=== PATIENT | female | born 1965 | race Caucasian/White ===

== ENCOUNTER 2022-08-22 09:12 | Outpatient (CLI) | payer OTHER, SELFPAY | END 2022-08-22 09:13 | disposition home or self-care (01) | LOC: INJ CL 09:12 | PROVIDERS: PCP Physician Assistant Medical; Visit Provider Family Medicine | DX: M54.16 Radiculopathy, lumbar region (principal); M51.36 Other intervertebral disc degeneration, lumbar region | CPT/HCPCS: 64483; J1100; Q9966 ==

== ENCOUNTER 2023-02-05 09:30 | Outpatient (RCR) | payer OTHER, SELFPAY ==
--- NOTE | 2023-01-28 13:06 | PT.OPDNX ---
PT [place] Outpatient Discharge Summary PT 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 I THINK I SLEPT WRONG. Pain Comments 010 Home Exercise Home Exercise Comments 12/19/22: ADDED S'HABD TB (RED) AND GUINEAN BALL OR WALL UPPER THORACIC EXT STRETCH Objective Other/Pertinent Objective SPINAL ALIGNMENT/POSTURE: FWD HEAD THORACIC KYPHOSIS DOWAGER'S HUMP CERVICAL ROM : Flexion: WNL Extension: WNL Right Rotation: WFL Left Rotation: WFL Right side bend: WFL Left Side bend: WFL SHOULDER AROM: WNL NECK/SHOULDER MMT: Deep neck flexor endurance test: WNL Shoulder shrug: R 5/5 L 5/5 Shoulder flexion: R 5/5 L 5/5 Shoulder abduction: R 5/5 L 5/ 5 Shoulder External Rotation: R 5/5 L 5/5 Shoulder Internal Rotation: R 5/5 L 5/5 Elbow Flexion: R 5/5 L 5/5 Elbow Ext: R 5/5 L 5/5 Thumb Ext: R 5/5 L 5/5 FInger Abd: R 5/5 L 5/5 SPECIAL TEST Spurlings Test: (-) Cervical distraction test: (- ) Neural Tension Test(Median/ Ulnar/Radial): (-) Bakody Sign(C4-C6 Radiculopathy): (-) Cervical rotation/Lateral flexion Test: (-) Marcin Test: (-) Vertebral Artery Test: (-) Sharp Marianna Test (transverse ligament): (-) Alar Lig Test: (-) Shoulder impingement Keys Tapan Test: (-) Neer Test: (-) Emmy Test: NT Horizontal Adduction Test: (-) JOINT MOBILITY/PALPATION : T8-T10 HYPOMOBILITY NOTED BILATERALLY TX: PRONE CERVICAL FLEX 3 X 10 SEC PRONE I, T, Y 10 X 5 SEC SEATED SHOULDER SHRUG WITH BKWD LOS COYOTES X 10 SEATED SCAP SQUEEZE 10 X 3 SEC SEATED CHIN TUCK 10 X 5 SEC SEATED THORACIC ROTATION STRETCH 3 X 10 SEC SEATED THORACIC EXT OVER CHAIR STRETCH 3 X 10 SEC . Patient Instructed in Risks/Benefits Yes Therapeutic Exercise Therapeutic Exercise Minutes (minutes) 35 Therapeutic Exercise: To Restore UBE (2.5 FWD/2.5 BKWD) Functional Status SEATED BKWD SHOULDER CIRCLES X 1MIN CHIN TUCKS X 1MIN HOLD 5 SEC SEATED THORACIC STRETCH 3 X 10 SEC STDG TB (BLUE) ROW X 15 STDG TB (BLUE) S'EXT X 15 STDG TB (GREEN) B'ER X 15 TRUNK EXT X 15 50# SUPINE ON LONG FOAM ROLL BUE FLEX/EXT X 10 SUPINE ON LONG FOAM ROLL SHORT VERSION BUE FLEX X 5 Manual Therapy Techniques Manual Therapy Minutes (minutes) 10 Manual Therapy Techniques PA MOBILIZATION T1-5 R/L FACET AND CENTRAL DTM TO MID THORACIC, LEVATOR SCAP Treatment Minutes Timed Code Treatment Minutes 45 Total Treatment Time 45 Billing Units Manual Therapy Units 1 Therapeutic Exercise Units 2 Plan of Care Physical Therapy Goals 1. PATIENT WILL TOLERATE AN ENTIRE SHIFT AT WORK WITH PAIN REPORTING OF <3/10 IN 8-10 WEEKS GOAL MET 2. PATIENT WILL BE INDEPENDENT WITH HER HEP AND DEMONSTRATE SELF PROGRESSION IN 8-10 WEEKS . GOAL MET 3. PATIENT WILL DEMONSTRATED NO PAIN DURING ADL'S, IADL'S, AND OTHER HOUSEHOLD ACTIVITIES IN 8-10 WEEKS. GOAL MET Daily Plan of Care Discharge Daily Plan of Care Comments DISCHARGE AND CONTINUE WITH HEP Discharge Note Discharge Summary PATIENT IS A [address] SANTOS AND DR. GOMEZ REFERRED TO PHYSICAL THERAPY D /T THORACIC PAIN DURING HER WORKDAY LIMITING HER BUE USE. PMHX INCLUDES BUT NOT LIMITED TO H/O LEFT KNEE SCOPE 2012, ANKLE SURGERY 2012, LEFT SHOULDER SCOPE 07/2010, CHOLECYSTECTOMY~2001, L TKA 2021, RIGHT TKA 07/2021, CERVICAL DDD, LUMBAR DDD, ARTHRITIS AND CELIAC DX. 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 SHE NOW CAN PARTICIPATE FULLY IN HER IADL' S, WORK ALL SHIFTS, AND PERFORM HER HEP CONSISTENTLY. SHE REPORTS RESOLUTION OF HER SYMPTOMS ABOUT HER CERVICOTHORACIC REGION WITH ONGOING ISSUES WITH HER FRACTURED PATELLA. IN REGARD TO THE DIAGNOSIS SHE WAS HERE TO SEE ME FOR SHE HAS MET HER GOAL AND IS DISCHARGED TODAY FROM [facility]. Date of First Visit for Therapy 12/05/22 Date of Last Visit for Therapy 01/28/23 Interventions Provided During Treatment Manual Therapy,Therapeutic Exercise Recommendations/Reason for Discharge Met All Therapy Goals Discharge Instructions CONTINUE WITH YOUR HEP Thank You For This Referral THANK YOU FOR YOUR REFERRAL
== END 2023-02-12 10:18 | disposition home or self-care (01) ==
PROVIDERS: PCP Physician Assistant Medical; Visit Provider Physician Assistant Medical
DX: M25.511 Pain in right shoulder (principal); Z51.89 Encounter for other specified aftercare
CPT/HCPCS: 97035; 97110; 97140; 97161; 97162; 97535; L3913; X5282

== ENCOUNTER 2023-07-16 09:00 | Outpatient (RCR) | payer OTHER, SELFPAY | END 2023-10-02 10:58 | disposition home or self-care (01) | PROVIDERS: PCP Physician Assistant Medical; Visit Provider Orthopaedic Surgery Sports Medicine | DX: S82.092A Other fracture of left patella, initial encounter for closed fracture (principal); Z96.652 Presence of left artificial knee joint; M25.562 Pain in left knee; R29.898 Other symptoms and signs involving the musculoskeletal system; Z51.89 Encounter for other specified aftercare | CPT/HCPCS: 97110; 97140; 97161 ==

== ENCOUNTER 2024-03-10 07:30 | Outpatient (RCR) | payer OTHER, SELFPAY | END 2024-07-08 23:59 | disposition home or self-care (01) | PROVIDERS: PCP Physician Assistant Medical; Visit Provider Physician Assistant Medical | DX: N81.89 Other female genital prolapse (principal); K59.00 Constipation, unspecified; R27.8 Other lack of coordination; Z51.89 Encounter for other specified aftercare | CPT/HCPCS: 97110; 97140; 97162; 97535 ==

== ENCOUNTER 2024-07-13 09:30 | Outpatient (RCR) | payer OTHER, SELFPAY | END 2024-10-19 15:01 | disposition home or self-care (01) | PROVIDERS: PCP Physician Assistant Medical; Visit Provider Family Medicine | DX: M75.41 Impingement syndrome of right shoulder (principal); M75.51 Bursitis of right shoulder; M19.011 Primary osteoarthritis, right shoulder; M25.511 Pain in right shoulder; Z74.09 Other reduced mobility; R53.1 Weakness; Z51.89 Encounter for other specified aftercare | CPT/HCPCS: 97110; 97161 ==

== ENCOUNTER 2025-03-27 23:24 | Emergency (ER) | payer BC, SELFPAY ==
--- OUTSIDE RECORDS SUMMARY | 2025-03-27 23:26 | XMS_ITS | Clinical Summary ---
Author Organization [facility] Address [address] [place] [address] Care Team Providers Care Forest Fire Officer Name Role Phone Shante Gandhi Primary Care Provider Allergies Active Allergy Reactions Criticality Noted Date Comments Gluten *Unknown 07/02/2021 Omeprazole Hives High 12/02/2010 Body itching- intense Hylan G-F 20 Edema Low 08/06/2020 Local reaction to SynVisc. Medications cetirizine (ZYRTEC) 10 mg tablet Daily Active tiZANidine (ZANAFLEX) 4 mg tabletIndications: Degeneration of lumbar or lumbosacral intervertebral disc TAKE 1 TABLET(4 MG) BY MOUTH EVERY 6 HOURS NEEDED FOR MUSCLE SPASM 60 Tablet 2 02/13/20 22 Active triamcinolone 0.5% (ARISTOCORT) 0.5 % creamIndications:D ermatitis Apply topically to affected area(s) three times daily. 30 g 1 12/01/19 24 Active HYDROcodone-acetam inophen (5-325 mg/tablet)Indicati ons:Chronic bursitis of right shoulder Take 1 Tablet by mouth every 4 hours if needed for Pain (Severe pain). Max acetaminophen dose: 4000 mg in 24 hrs. 24 Tablet 06/06/20 24 Active traZODone 50 mg tabletIndications: Degeneration of lumbar or lumbosacral intervertebral disc,Degeneration of cervical intervertebral disc TAKE 1 TO 2 TABLETS(50 TO 100 MG) BY MOUTH AT BEDTIME 180 Tablet 11/28/19 25 Active Active Problems Problem Noted Date Diagnosed Date Pap smear for cervical cancer screening 12/11/19 24 Overview (12/11/2023): 11/2023 NIL/HPV negative. Plan: Pap/HPV due 11/2028. S/P total knee arthroplasty, right 07/17/2021 Obesity, Class II, BMI 35-39.9 12/08/2017 Routine adult health maintenance 09/05/2016 Overview (09/05/2016): Colonoscopy 08/2016 normal repeat in 10 years Knee osteoarthritis 08/03/2014 Gastric ulcer, unspecified a s acute or chronic, without mention of hemorrhage, perforation, or obstruction 06/27/2011 Overview (06/27/2011): EGD 05/2011 small superficial ulcer, Helicobacter Pylori negative, no celiac disease, no follow up EGD needed Allergic rhinitis 06/06/2011 L3-4 disk protrusion and L4 nerve contact 2010 L4-5 central disk injury 02/03/2011 Prediabetes 10/17/2010 Large C6-7 Left Disk Herniation 05/31/2010 Left shoulder supraspinatus tendinosis 0 MIld Osteoarthritis of Right Hip 12/31/2009 Gluten-sensitive enteropathy 12/10/2009 Degeneration of cervical intervertebral disc Degeneration of lumbar or lumbosacral interverte bral disc 05/30/2009 Immunizations Immunization Administration Dates Next Due COVID-19 vaccine ([employer] NTech 30mcg/0.3mL) 12YO+ BIVALENT PF, MDV 06/17/2022 COVID-19 vaccine ([employer] NTech 30mcg/0.3mL) PF, MDV 06/07/2021,10/09/2020,09/18/2020 Influenza, IIV4 07/04/2016 Td (Age >=7 Years) 09/04/2003 Tdap 07/05/2020,07/16/2010 Zoster (Shingrix-RZV, recombinant) 02/15/2024, Family History Medical History Relation Name Comments Hypertension Father Diabetes Mother Cancer-breast No Family History Relation Name Status Comments Brother Alive Father Alive Mother Alive Social History Tobacco Use Types Packs/Day Years Used Date Smoking Tobacco: Never Smokeless Tobacco: Never Tobacco Cessation:Counseling Given: Yes Alcohol Use Standard Drinks/Week Comments No 0 (1 standard drink = 0.6 oz pur e alcohol) PHQ-2 Answer Date Recorded PHQ-2 TOTAL SCORE 0 12/01/2023 Social Connections Answer Date Recorded Do you often feel lonely or isolated from those around you? 0 10/23/2023 Financial Resource Strain Answer Date R ecorded Difficulty of Paying Living Expenses 3 10/23/2023 Difficulty of Paying Living Expenses Not on file 10/23/2023 Food Insecurity Answer Date Recorded Do you worry your food will run out before you are able to buy more? 1 10/23/2023 Transportation Needs Answer Date Record ed Does lack of transportation keep you from medica l appointments? 1 10/23/2023 Does lack of transportation keep you from work, meetings or getting things that you need? 1 10/23/2023 Housing Stability Answer Date Recorded What is your housing situation today? 1 10/23/2023 Utilities Answer Date Recorded Do you have trouble paying f or utilities (for example, heat, electricity, water, phone)? 1 10/23/2023 Comments No Sex and Gender Information Value Date Recorded Sex Assigned at Female 02/19/2020 12:03 AM CDT Legal Sex Female 7:01 AM GEOMATICS PROFESSOR Gender Identity Female 02/19/2020 12:03 AM CDT Sexual Orientation Straight 02/19/2020 12 :03 AM CDT Obstetrics History Last Filed Vital Signs Vital Sign Reading Time Taken Comments Blood Pressure 98/56 09/01/2024 11:03 AM GEOMATICS PROFESSOR Pulse 82 09/01/2024 11:03 AM GEOMATICS PROFESSOR Temperature 36.4 C (97.6 F) 09/01/2024 11:03 AM GEOMATICS PROFESSOR Respiratory Rate 19 09/01/2024 11:03 AM GEOMATICS PROFESSOR Oxygen Saturation 98% 09/01/2024 11:03 AM GEOMATICS PROFESSOR Inhaled Oxygen Concentration - - Weight 88.5 kg (195 lb) 06/08/2024 11:00 AM CDT Height 179 cm (5' 10.47) 12/01/2023 9:24 AM CDT Body Mass Index 27.61 12/01/2023 9:24 AM CDT Plan of Treatment Health Maintenance Due Date Last Done Comments HIV for age 15-65 1980 Hepatitis B series for 19+ ( 1 of 3 - 19+ 3-dose series) 1984 Pneumococcal series for age 50+ (1 of 1 - PCV) 2015 Mammogram for age 45-75 10/21/2024 10/21/19 24, 11/03/2018, 08/01/2016, Additional history exists BMI (ht and wt on same day) for age 18+ 11/30/2024 12/01/2023, 10/23/2023, 03/04/2023, Additional history exists Depression screening for age 12+ 11/30/2024 12/01/2023, 02/04/2022, 12/19/2020, Additional history exists Influenza Vaccine (#1) 2025 07/04/2016 Colonoscopy through age 75 09/05/202609/05, 09/05/2016, 09/05/2016 Lipids for age 45-75 10/23/2028 10/23/2023, 11/03/2018, 09/05/2016, Additional history exists Pap test for age 21-65 11/30/2028 , 12/01/2023, 11/03/2018, Additional history exists Tetanus booster 07/05/2030 07/05/2020, 07/01, 09/04/2003 Hepatitis C screening for ag e 18-79 Completed 2014 Zoster (shingles) series for age 50+ Completed 02/15/2024, 10/23/2023 COVID-19 vaccine series Completed 06/01/20 24, 06/04/2023, 06/17/2022, Additional history exists Procedures Procedure Name Priority Date/Time Associated Diagnosis Comments RESERVOIR ENGINEERING CONSULTANT THIN PREP PAP SCREEN IMAGED Routine 12/01/2023 10:11 AM CDT Screening for cervical cancer LIPID PANEL W REFLEX MEASURED LDL Routine 10/23/2023 8:41 AM GEOMATICS PROFESSOR Screening cholesterol level XR MAMMO PRECIOUS BILAT SCREEN Routine 10/21/2023 9:03 AM GEOMATICS PROFESSOR Encounter for screening mammogram for malignant neoplasm of breast COLONOSCOPY 09/05/2016 9:28 AM GEOMATICS PROFESSOR ANTI HCV Routine 2014 8:58 AM CDT Need for hepatitis C screening test from Last 3 Months or Most Recently Relevant to Health Maintenance Results * RESERVOIR ENGINEERING CONSULTANT THIN PREP PAP SCREEN IMAGED [[id number]] (12/01/2023 10:11 AM CDT) Case Report Gynecologic Cytology Report Case: [id number] Authorizing Provider: Shante Gandhi PA Collected: 12/01/2023 1011 Ordering Location: [facility] Received: 12/01/2023 1030 Clinic First Screen: Obey Simmons Specimen: RESERVOIR ENGINEERING CONSULTANT ThinPrep Vial Screening, Cervical 12/10/2023 11:51 AM CDT [facility] INTERPRETATION/ RESULT NEGATIVE FOR INTRAEPITHELIAL LESION OR MALIGNANCY (NIL) (none) 12/10/2023 11:51 AM CDT [facility] at 1151 CDT SPECIMEN ADEQUACY Satisfactory for evaluation Endocervical component present 12/10/2023 11:51 AM CDT [facility] HPV REQUEST HPV and PAP 12/10/2023 11:51 AM CDT [facility] Date of LMP unsure 12/10/2023 11:51 AM CDT [facility] Last Pap Date 11/03/18 12/10/2023 11:51 AM CDT [facility] Last Pap Result NIL 11:51 AM CDT [facility] Abnormal Pap or [place] Bx in last 5 years No 12/10/2023 11:51 AM CDT [facility] Menstrual Status Postmenopausal 12/10/2023 11:51 AM CDT [facility] [place] Bx Done Today No 12/10/2023 11:51 AM CDT [facility] Additional Information None given 12/10/2023 11:51 AM CDT [facility] Comment: Cytology is screened at [facility] - [address], [place] [address] [address] [facility] - [address] [place] [address], [place] [address] and [facility] - [address] [place] [address] Interpreted at [facility] - [address] [place] [address] Automated Review Successful 12/10/2023 11:51 AM CDT [facility] Comment:Specimen processed s uccessfully by automated public health policy analyst device, ThinPrep Imaging System, [employer] ANCILLARY TESTING RESERVOIR ENGINEERING CONSULTANT HPV Ordered, Please see separate report 12/10/2023 11:51 AM CDT [facility] Note The pap test is a screening technique, not a diagnostic procedure. It is used primarily to screen for squamous cancers and precursor lesions. Published studies have shown that it is subject to both false negative and false positive results. The pap test should not be used as the sole means to diagnose or exclude pre-malignant and malignant lesions. 12/10/2023 11:51 AM CDT [facility] Other (Cervical) Non-Blood / Unknown 12/01/2023 10:11 AM CDT 12/01/2023 10:30 AM CDT Shante MORALES PATHOLOGY/CYTOLOGY Ernestina pat Result [facility] [address] [place] [address], * LIPID PANEL W REFLEX MEASURED LDL (10/23/2023 8:41 AM GEOMATICS PROFESSOR) CHOLESTEROL,TOTAL 180 100 - 199 mg/dL 10/23/2023 5:11 PM GEOMATICS PROFESSOR [facility] Comment: Cholesterol, Total Reference Ranges Desirable <200 mg/dL Borderline 200-239 mg/dL High >=240 mg/dL TRIGLYCERIDES 104 <150 mg/dL 10/23/2023 5:11 PM GEOMATICS PROFESSOR [facility] HDL CHOLESTEROL 47 >40 mg/dL 5:11 PM GEOMATICS PROFESSOR [facility] NON-HDL CHOLESTEROL 133 <145 mg/dl 10/23/2023 5:11 PM GEOMATICS PROFESSOR [facility] CHOL/HDL RATIO 3.83 <4.50 10/23/2023 5:11 PM GEOMATICS PROFESSOR [facility] LDL CHOLESTEROL 112 <=130 mg/dL 10/23/2023 5:11 PM GEOMATICS PROFESSOR [facility] VLDL CHOLESTEROL 21 <=30 mg/dL 10/23/2023 5:11 PM GEOMATICS PROFESSOR [facility] PROVIDER ORDERED STATUS RANDOM 10/23/2023 5:11 PM GEOMATICS PROFESSOR [facility] Blood BLOOD SPECIMEN / Unknown Venipuncture / Unknown 10/23/2023 8:41 AM GEOMATICS PROFESSOR 10/23/2023 8:41 AM GEOMATICS PROFESSOR us Shante MORALES CHEMISTRY Final R esult [facility] [address] [place] [address], [place] * XR MAMMO PRECIOUS BILAT SCREEN (10/21/2023 9:03 AM GEOMATICS PROFESSOR) Anatomical Region Laterality Modality BREASTS, Breast Left, Breast Right Bilateral Mammography Impressions 10/21/2023 2:58 PM GEOMATICS PROFESSOR There is no radiographic evidence for malignancy. Recommend annual mammograms. MAMMOGRAM ASSESSMENT: ACR 1 Negative PATIENTS: You will also receive a letter with your examination results in an easy to read format. If you have questions about your results, please contact your referring provider. Narrative 10/21/2023 2:58 PM GEOMATICS PROFESSOR For Patients: As a result of the 21st Century Cures Act, medical imaging exams and procedure reports are released immediately into your electronic medical record. You may view this report before your referring provider. If you have questions, please contact your health care provider. XR MAMMO PRECIOUS BILAT SCREEN [[id number]] CLINICAL HISTORY: This is an asymptomatic 58 y.o. patient. INDICATION FOR EXAM: Mammogram Screening. TECHNIQUE: CC & MLO views were obtained. This study was evaluated with the assistance of Computer-Aided Detection. Breast Tomosynthesis was used in interpretation. COMPARISON FILM: Yes 3/6/19 [facility] 08/01/16 [facility] FINDINGS: The breasts have scattered areas of fibroglandular density. There are no dominant masses, suspicious micro calcifications or areas of architectural distortion. us Shante MROALES MAMMO Final R esult * COLONOSCOPY (09/05/2016 9:28 AM GEOMATICS PROFESSOR) 09/05/2016 9:28 AM GEOMATICS PROFESSOR Narrative Transcriptions Juancho Ferrer MD - 10/20/2016 3:34 PM CST Patient Name: Ayanna Jackson Procedure Date: 09/05/2016 Gender: Female Date of : 1965 Admit Type: Outpatient Procedure: Colonoscopy Proceduralist: Juancho Ferrer MD Referring MD: Shante Gandhi Indications/Pre-Op Diagnosis: Screening for colorectal malignant neoplasm, This is the patient's first colonoscopy Medications: Fentanyl 100 micrograms IV, Midazolam 3 mgIV, The level of sedation administered wasmoderate Procedure Description: The patient had risks, benefits and alternatives explained to andgave informed consent. The patient had a stable cardiopulmonary status and judged an adequate candidate for conscious sedation. The [id number] was passed through the anus and advanced tothe cecum, identified by appendiceal orifice and ileocecal valve. The colonoscopy was performed without difficulty. The patient toleratedthe procedure well. The quality of the bowel preparation was excellent.The ileocecal valve, appendiceal orifice, and rectum were photographed. Moderate (conscious) sedation was administered by the endoscopist.The following parameters were monitored: oxygen saturation, heart rate, blood pressure, and response to care. Total physician intra-servicetime was 25 minutes. Please see endoscopy/nursing flowsheet and notes for moderate sedation information and documentation. Complications: No immediate complications. Estimated Blood Loss & Specimen: Estimated blood loss: none. Specimen collected - None Findings: The perianal and digital rectal examinations were normal. The entire examined colon appeared normal on direct and retroflexion views. Impressions/Post-Op Diagnosis: - The entire examined colon is normal on direct and retroflexionviews. - No specimens collected. Recommendation: - Patient has a contact number available for emergencies. The signsand symptoms of potential delayed complications were discussed with the patient. Return to normal activities tomorrow. Written discharge instructions were provided to the patient. - Resume previous diet. - Continue present medications. - Repeat colonoscopy in 10 years for screening purposes. Juancho Ferrer MD 09/05/2016 10:49:01 AM This report has been signed electronically. Note Initiated On: 09/05/2016 9:28 AM Procedure Code(s): --- Professional --- G0121, Colorectal cancer screening;colonoscopy on individual not meeting criteria for highrisk Diagnosis Code(s): --- Professional --- Z12.11, Encounter for screening formalignant neoplasm of colon CPT copyright 2015 [employer]. All rights reserved. The codes documented in this report are preliminary and upon learning and development administrator reviewmay be revised to meet current compliance requirements. Scope In: 10:25:47 AM Scope Withdrawal Time 0 hours 8 minutes 34 seconds Scope Out: 10:45:22 AM us Juancho Ferrer MD PROCEDURE ORD Edited Re sult - Final * ANTI HCV [[id number]] (2014 8:58 AM CDT) HEPATITIS C ANTIBODY Non-Reacti ve Non-Reacti ve 2014 1:55 PM CDT [facility] Blood specimen (specimen) BLOOD SPECIMEN / Unknown Venipuncture / Unknown 2014 8:58 AM CDT 2014 8:58 AM CDT Narrative [facility] - 2014 1:55 PM CDT Antibodies to HCV not detected; does not exclude the possibility of exposure to HCV. us Shante MORALES SEND OUTS Final R esult [facility] [address] [place] [address], [place] from Last 3 Months or Most Recently Relevant to Health Maintenance Insurance [facility] [place]-[facility] Care Teams Forest Fire Officer Relationship Specialty Start Date End Date Shante Gandhi PA [address] [place] [address] PCP - General Family Practice 11/12/15
[2025-03-27 23:30] VITALS: BP 157/92; PULSE 89; RESP 18; TEMP 36.8; O2SAT 99; BMI 28.7
--- NOTE | 2025-03-27 23:37 | ED_ITS ---
HPI - General Adult General Date Seen: 03/27/25 Chief complaint: Insect Bite Stated complaint: multiple hornet stings Time Seen by Provider: 03/27/25 23:35 History of Present Illness HPI narrative: 59 yo F presenting to the ER today with her for evaluation of multiple the or hornet stings. About 45 minutes prior to arrival this evening she was going into a garage when she unexpectedly and encountered a Swarm for notes. She initially about the flies, but they were not. This started landing on her and sting. She suffered multiple stings, perhaps around 10. Two of them on her right hand on the dorsum of the knuckles and tumor on her left forearm. She has a few stings on her low back, sting on her left thigh. All of the stings are itchy and burning and some them are developing into red welts. She feels little bit dizzy. She is not having any swelling in her throat. No other diffuse hives. No trouble breathing. No abdominal pain. No vomiting. She has not had a bee sting in quite a few years but has no history of bee sting allergy. Related Data Home Medications ?Medication ?Instructions ?Recorded ?Confirmed cetirizine 10 mg tablet (Zyrtec) 10 mg PO QDAY PRN 12/2005/05/23 Previous Rx's ?Medication ?Instructions ?Recorded diphenhydramine HCl 25 mg capsule 25 mg PO TID PRN #10 caps 03/28/25 (Benadryl) diphenhydramine HCl 25 mg capsule 25 mg PO TID PRN #10 caps 03/28/25 (Benadryl) ibuprofen 600 mg tablet 600 mg PO Q8H PRN #14 tabs 0 03/28/25 prednisone 20 mg tablet 40 mg (2 x 20 mg) PO DAILY # 6 tabs 03/28/25 prednisone 20 mg tablet 40 mg (2 x 20 mg) PO DAILY 3 days 03/28/25 #6 tabs Allergies Allergy/AdvReac Type Severity Reaction Status Date / Time gluten Allergy Verified 05/05/23 09:56 hylan G-F 20 Allergy Verified 05/05/23 09:56 omeprazole Allergy Hives Verified 05/05/23 09:56 [facility] Medical History (Updated 03/28/25 @ 00:03 by Mp Emmanuel MD) Anemia ?D64.9 - Anemia, unspecified (ICD-10) Surgical History History of ankle surgery (06/14/13) ?Z98.890 - Other specified postprocedural states (ICD-10) H/O arthroscopy of left knee (07/18/13) ?Z98.890 - Other specified postprocedural states (ICD-10) History of arthroscopy of left shoulder (07/23/10) ?Z98.890 - Other specified postprocedural states (ICD-10) 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) ?Z96.652 - Presence of left artificial knee joint (ICD-10) History of total right knee replacement (07/15/21) ?Z96.651 - Presence of right artificial knee joint (ICD-10) History of cholecystectomy (~2001) ?Z90.49 - Acquired absence of other specified parts of digestive tract (ICD- 10) Family History Maternal Grandfather Aneurysm Mother Diabetes Alcohol dependence Paternal Grandfather Myocardial infarction Stroke Father High blood pressure Social History (Updated 12/30/22 @ 10:01 by Joi Vanessa ~ [facility]) Smoking Status: Never smoker Do you use any of these nicotine containing products: None Second hand tobacco smoke exposure: No How often do you have a drink containing alcohol: never AUDIT-C Alcohol total score: 0 Non-prescribed substance use: denies use Exam Narrative: Exam Narrative: Constitutional: Appears well-developed and well-nourished. Alert. Conversant. Non toxic. HENT: Head: Atraumatic. Nose: Nose normal. Mouth/Throat: Oral mucosa is clear and moist. no trismus. Pharynx normal. Tonsils symmetric. No tonsillar enlargement, erythema, or exudate. Eyes: Conjunctivae normal. EOM normal. Pupils equal, round, and reactive to light. No scleral icterus. Neck: Normal range of motion. Neck supple. No tracheal deviation present. Cardiovascular: Normal rate, regular rhythm. No gallop. No friction rub. No murmur heard. Pulmonary/Chest: Effort normal. No stridor. No respiratory distress. No wheezes. No rales. No rhonchi . Abdominal: Soft. No distension. No mass. No tenderness. No rebound. No guarding. Musculoskeletal: RUE: Normal range of motion. No tenderness. No deformity LUE: Normal range of motion. No tenderness. No deformity RLE: Normal range of motion. No edema. No tenderness. No deformity LLE: Normal range of motion. No edema. No tenderness. No deformity Neurological: Alert and oriented to person, place, and time. Normal strength. CN II-VII intact. No sensory deficit. GCS eye subscore is 4. GCS verbal subscore is 5. GCS motor subscore is 6. Normal coordination Skin: Skin is warm and dry. No rash noted. No pallor. Normal capillary refill. Psychiatric: Normal mood. Normal affect. Const: Vital Signs, click to edit/add: Vital Signs - 24 hr 03/27/25 23:30 03/27/25 23:56 03/28/25 00:15 Temperature 98.2 F 98.2 F 98.2 F Pulse Rate [Right Pulse Oximeter] 89 81 Respiratory Rate 18 18 Blood Pressure [Ri ght Upper Arm] 157/92 H 145/84 H Pulse Oximetry 99 99 Oxygen Delivery Me thod Room Air Room Air 03/28/25 00:17 Temperature 98.2 F Pulse Rate [Right Pulse Oximeter] 81 Respiratory Rate 18 Blood Pressure [Ri ght Upper Arm] 145/84 H Pulse Oximetry Oxygen Delivery Me thod Course Vital Signs Vital signs: Initial Vital Signs Temperature 98.2 F 03/27/25 23:30 Temperature Source Temporal Artery Scan 03/27/25 23:30 Pulse Rate 89 03/27/25 23:30 Respiratory Rate 18 03/27/25 23:30 Blood Pressure 157/92 H 03/27/25 23:30 Blood Pressure Mean 113 H 03/27/25 23:30 Blood Pressure Position Sitting 03/27/25 23:30 Pulse Oximetry 99 03/27/25 23:30 Oxygen Delivery Method Room Air 03/27/25 23:30 Vital Signs Temperature 98.2 F 03/27/25 23:30 Pulse Rate 89 03/27/25 23:30 Respiratory Rate 18 03/27/25 23:30 Blood Pressure 157/92 H 03/27/25 23:30 Pulse Oximetry 99 03/27/25 23:30 Oxygen Delivery Method Room Air 03/27/25 23:30 Temperature 98.2 F 03/28/25 00:17 Pulse Rate 81 03/28/25 00:17 Respiratory Rate 18 03/28/25 00:17 Blood Pressure 145/84 H 03/28/25 00:17 Pulse Oximetry 99 03/28/25 00:15 Oxygen Delivery Method Room Air 03/28/25 00:15 Medications Administered Medications: Discontinued Medications Generic Name Dose Route Start Last Admin Trade Name Breana PRN Reason Stop Dose Admin Diphenhydramine HCl 25 mg 03/27/25 23:50 03/27/25 23:55 Diphenhydramine 25 Mg Capsule PO 03/27/25 23:51 25 mg ONCE ONE Administration Ibuprofen 600 mg 03/27/25 23:50 03/27/25 23:56 Ibuprofen 600 Mg Tablet PO 03/27/25 23:51 600 mg ONCE ONE Administration Prednisone 40 mg 03/27/25 23:50 03/27/25 23:56 Prednisone 20 Mg Tablet PO 03/27/25 23:51 40 mg ONCE ONE Administration Medical Decision Making [facility] Narrative Medical decision making narrative: This patient presents for evaluation after she had multiple insect stings from hornets or BBs that were or unexpectedly in her garage this evening.. She does have multiple erythematous painful itchy macules on her skin that correspond to about 10 bite sites. No airway involvement, bronchospasm, GI symptoms, hypotension, or other sign of anaphylaxis. Patient was treated here with medications as noted above. At this point I think she is safe to discharge home with steroids, antihistamines. NSAIDs for pain. Potential for worsening allergic reaction was discussed. Anaphylactic symptoms were discussed with patient and they were instructed to inject epi-pen and call 911 should these symptoms occur. Given the rapidity of resolution, lack of serious systemic symptoms, lack of respiratory difficulty and no oral or pharyngeal swelling, would not admit at this time for anaphylaxis. There is no signs of anaphylactic shock. Discharge Plan Discharge Clinical Impression: Hymenoptera sting Patient Disposition: Home, Self-Care Condition: Stable Instructions: Insect Bite or Sting (ED) Additional Instructions: As we discussed, it will usually take a couple of days for the pain and burning from your bee stings to settle down. To help treat your symptoms you can use ibuprofen 600 mg 3 times daily as needed, and Benadryl 25 mg every 6 hours as needed. Be careful because Benadryl can cause drowsiness. You can use prednisone once daily for the next couple of days to keep your immune system her control. If you have worsening symptoms such as swelling in her throat, trouble heather thing, dizziness or lightheadedness, or any other problems, please return to the ER right away. Prescriptions: New prednisone 20 mg tablet 40 mg PO DAILY 3 Days Qty: 6 0RF diphenhydramine HCl [Benadryl] 25 mg capsule 25 mg PO TID PRNQty: 10 0RF diphenhydramine HCl [Benadryl] 25 mg capsule 25 mg PO TID PRNQty: 10 0RF prednisone 20 mg tablet 40 mg PO DAILY Qty: 6 0RF ibuprofen 600 mg tablet 600 mg PO Q8H PRNQty: 14 0RF No Action cetirizine [Zyrtec] 10 mg tablet 10 mg PO QDAY PRN Follow Up/Referrals: Shante Gandhi PA-C [Primary Care Provider, Family Practice] Stand Alone Forms: Kiosked Info Instructions
[2025-03-27 23:56] VITALS: TEMP 36.8
[2025-03-27] MEDS: IBUPROFEN 600 MG TABLET PO (23:56)
--- OUTSIDE RECORDS SUMMARY | 2025-03-28 00:09 | XMS_ITS | Clinical Summary ---
Author Organization [facility] Address [address] [place] [id number] Care Team Providers Care Mint Wafer Depositor Name Role Phone Shante Gandhi Primary Care [...] Immunization Administration Dates Next Due COVID-19 vaccine ([employer] 30mcg/0.3mL) 12YO+ BIVALENT PF, MDV 06/17/2022 COVID-19 vaccine ([employer] 30mcg/0.3mL) PF, MDV 06/07/2021,10/09/2020,09/18/2020 Influenza, IIV4 [...] AM CDT Legal Sex Female 7:01 AM ETHYLBENZENE CRACKING SUPERVISOR Gender Identity Female 02/19/2020 12:03 AM CDT Sexual Orientation Straight 02/19/2020 12 :03 AM CDT Obstetrics History Last Filed Vital Signs Vital Sign Reading Time Taken Comments Blood Pressure 98/56 09/01/2024 11:03 AM ETHYLBENZENE CRACKING SUPERVISOR Pulse 82 09/01/2024 11:03 AM ETHYLBENZENE CRACKING SUPERVISOR Temperature 36.4 C (97.6 F) 09/01/2024 11:03 AM ETHYLBENZENE CRACKING SUPERVISOR Respiratory Rate 19 09/01/2024 11:03 AM ETHYLBENZENE CRACKING SUPERVISOR Oxygen Saturation 98% 09/01/2024 11:03 AM ETHYLBENZENE CRACKING SUPERVISOR Inhaled Oxygen Concentration - - Weight 88.5 [...] Procedure Name Priority Date/Time Associated Diagnosis Comments DOUBLE ENDING MACHINE OPERATOR THIN PREP PAP SCREEN IMAGED Routine 12/01/2023 10:11 AM CDT Screening for cervical cancer LIPID PANEL W REFLEX MEASURED LDL Routine 10/23/2023 8:41 AM ETHYLBENZENE CRACKING SUPERVISOR Screening cholesterol level XR MAMMO PRECIOUS BILAT SCREEN Routine 10/21/2023 9:03 AM ETHYLBENZENE CRACKING SUPERVISOR Encounter for screening mammogram for malignant neoplasm of breast COLONOSCOPY 09/05/2016 9:28 AM ETHYLBENZENE CRACKING SUPERVISOR ANTI HCV Routine 2014 8:58 AM CDT Need for hepatitis C screening test from Last 3 Months or Most Recently Relevant to Health Maintenance Results * DOUBLE ENDING MACHINE OPERATOR THIN PREP PAP SCREEN IMAGED [[id number]] (12/01/2023 10:11 AM CDT) Case Report Gynecologic Cytology Report Case: [id number] Authorizing Provider: Shante Gandhi PA Collected: 12/01/2023 1011 Ordering Location: [facility] Received: 12/01/2023 1030 Clinic First Screen: Obey Simmons Specimen: DOUBLE ENDING MACHINE OPERATOR ThinPrep Vial Screening, Cervical 12/10/2023 11:51 AM CDT [facility] INTERPRETATION/ RESULT NEGATIVE FOR INTRAEPITHELIAL LESION OR MALIGNANCY (NIL) (none) 12/10/2023 11:51 AM CDT [facility] at 1151 CDT SPECIMEN ADEQUACY Satisfactory for evaluation Endocervical component present 12/10/2023 11:51 AM CDT [facility] HPV REQUEST HPV and PAP 12/10/2023 11:51 AM CDT [facility] Date of LMP unsure 12/10/2023 11:51 AM CDT [facility] Last Pap Date 11/03/18 12/10/2023 11:51 AM CDT [facility] Last Pap Result NIL 11:51 AM CDT [facility] Abnormal Pap or Burdette Bx in last 5 years No 12/10/2023 11:51 AM CDT [facility] Menstrual Status Postmenopausal 12/10/2023 11:51 AM CDT [facility] Burdette Bx Done Today No 12/10/2023 11:51 AM CDT [facility] Additional Information None given 12/10/2023 11:51 AM CDT [facility] Comment: Cytology is screened at [facility], Central Laboratory - [address], [place] [address] and [facility] - [address] [place] [address], [place] [address] and [facility] - [address] [place] [address] Interpreted at [facility] - [address] [place] [address] Automated Review Successful 12/10/2023 11:51 AM CDT [facility] Comment:Specimen processed s uccessfully by automated astronomy teacher device, ThinPrep Imaging System, [employer] ANCILLARY TESTING DOUBLE ENDING MACHINE OPERATOR HPV Ordered, Please see separate report 12/10/2023 11:51 AM CDT [facility] Note The pap test [...] and malignant lesions. 12/10/2023 11:51 AM CDT [facility] Other (Cervical) Non-Blood / Unknown 12/01/2023 10:11 AM CDT 12/01/2023 10:30 AM CDT Shante MORALES PATHOLOGY/CYTOLOGY Ernestina pat Result [facility] [address] [place] [address], * LIPID PANEL W REFLEX MEASURED LDL (10/23/2023 8:41 AM ETHYLBENZENE CRACKING SUPERVISOR) CHOLESTEROL,TOTAL 180 100 - 199 mg/dL 10/23/2023 5:11 PM ETHYLBENZENE CRACKING SUPERVISOR [facility] Comment: Cholesterol, Total Reference Ranges Desirable <200 mg/dL Borderline 200-239 mg/dL High >=240 mg/dL TRIGLYCERIDES 104 <150 mg/dL 10/23/2023 5:11 PM ETHYLBENZENE CRACKING SUPERVISOR [facility] HDL CHOLESTEROL 47 >40 mg/dL 5:11 PM ETHYLBENZENE CRACKING SUPERVISOR [facility] NON-HDL CHOLESTEROL 133 <145 mg/dl 10/23/2023 5:11 PM ETHYLBENZENE CRACKING SUPERVISOR [facility] CHOL/HDL RATIO 3.83 <4.50 10/23/2023 5:11 PM ETHYLBENZENE CRACKING SUPERVISOR [facility] LDL CHOLESTEROL 112 <=130 mg/dL 10/23/2023 5:11 PM ETHYLBENZENE CRACKING SUPERVISOR [facility] VLDL CHOLESTEROL 21 <=30 mg/dL 10/23/2023 5:11 PM ETHYLBENZENE CRACKING SUPERVISOR [facility] PROVIDER ORDERED STATUS RANDOM 10/23/2023 5:11 PM ETHYLBENZENE CRACKING SUPERVISOR [facility] Blood BLOOD SPECIMEN / Unknown Venipuncture / Unknown 10/23/2023 8:41 AM ETHYLBENZENE CRACKING SUPERVISOR 10/23/2023 8:41 AM ETHYLBENZENE CRACKING SUPERVISOR us Shante MORALES CHEMISTRY Final R esult [facility] [address] [place] [id number], [place] * XR MAMMO PRECIOUS BILAT SCREEN (10/21/2023 9:03 AM ETHYLBENZENE CRACKING SUPERVISOR) Anatomical Region Laterality Modality BREASTS, Breast Left, Breast Right Bilateral Mammography Impressions 10/21/2023 2:58 PM ETHYLBENZENE CRACKING SUPERVISOR There is no radiographic evidence for malignancy. Recommend annual mammograms. MAMMOGRAM ASSESSMENT: ACR 1 Negative PATIENTS: You will also receive a letter with your examination results in an easy to read format. If you have questions about your results, please contact your referring provider. Narrative 10/21/2023 2:58 PM ETHYLBENZENE CRACKING SUPERVISOR For Patients: As a result of the 21st Century Cures Act, medical imaging exams and procedure reports are released immediately into your electronic medical record. You may view this report before your referring provider. If you have questions, please contact your health care provider. XR MAMMO PRECIOUS BILAT SCREEN [[id number]] CLINICAL HISTORY: This is an asymptomatic 58 [...] or areas of architectural distortion. us Shante MORALES MAMMO Final R esult * COLONOSCOPY (09/05/2016 9:28 AM ETHYLBENZENE CRACKING SUPERVISOR) 09/05/2016 9:28 AM ETHYLBENZENE CRACKING SUPERVISOR Narrative Transcriptions Juancho Ferrer MD - 10/20/2016 [...] adequate candidate for conscious sedation. The PCF-[id number] [id number] was passed through the anus and advanced [...] formalignant neoplasm of colon CPT copyright 2015 [employer]. All rights reserved. The codes documented in this report are preliminary and upon plate printer reviewmay be revised to meet current compliance requirements. Scope In: 10:25:47 AM Scope Withdrawal Time 0 hours 8 minutes 34 seconds Scope Out: 10:45:22 AM us Juancho Ferrer MD PROCEDURE ORD Edited Re sult - Final * ANTI HCV [[id number]] (2014 8:58 AM CDT) HEPATITIS C ANTIBODY Non-Reacti ve Non-Reacti ve 2014 1:[address] [facility] Blood specimen (specimen) BLOOD SPECIMEN / Unknown Venipuncture / Unknown 2014 8:58 AM CDT 2014 8:58 AM CDT Narrative [facility] - 2014 1:55 PM CDT Antibodies to HCV not detected; does not exclude the possibility of exposure to HCV. us Shante MORALES SEND OUTS Final R esult [facility] [address] [place] [address], [place] from Last 3 Months or Most Recently Relevant to Health Maintenance Insurance [facility] NON-VA-[facility] Care Teams Mint Wafer Depositor Relationship Specialty Start Date End Date Shante Gandhi PA [address] [place] [address] PCP - General Family Practice 11/12/15
[2025-03-28 00:15] VITALS: BP 145/84; PULSE 81; RESP 18; TEMP 36.8; O2SAT 99
[2025-03-28 00:17] VITALS: BP 145/84; PULSE 81; RESP 18; TEMP 36.8
== END 2025-03-28 00:30 | disposition home or self-care (01) ==
LOC: ED 03-28 00:06
PROVIDERS: Emergency Provider Emergency Medicine; PCP Physician Assistant Medical
DX: T63.451A Toxic effect of venom of hornets, accidental (unintentional), initial encounter (principal)
CPT/HCPCS: 99282; 99283; A9270; J7512